=== PATIENT | male | born 1955 | race Caucasian/White ===

== ENCOUNTER 2016-06-29 10:59 | Day surgery (SDC) | payer OTHER ==
[~2016-06-29] VITALS: Ht 175.3 cm; Wt 106.6 kg
[~2016-06-29 10:59] MED LIST: CLON0.3T PO; HYG25 PO; LEVO50TA6 PO; LISI40TA PO; PARO20TA5 PO; SIMV20TA4 PO; Sodium Chloride LOK Flush 10 mL Syringe IV PRN; fentaNYL-PF 50 mCg/mL 2 mL Inj IVPUSH PRN
[2016-06-29 11:29] VITALS: BP 121/75; PULSE 64; RESP 16; O2SAT 96
[2016-06-29] MEDS: 0.9% Sodium Chloride 1,000 ML IV PRN ×3 (11:35→14:08)
[2016-06-29 14:20] VITALS: BP 113/79; PULSE 60; RESP 14; O2SAT 96
[2016-06-29 14:30] VITALS: BP 122/81; PULSE 60; O2SAT 98
[2016-06-29 14:40] VITALS: BP 121/76; PULSE 63; O2SAT 97
--- NOTE | 2016-06-29 21:59 | ENDO ---
[address] [address] ENDOSCOPY PROCEDURE PATIENT: GUEVARA XAVIER : 1955 MR#: [id number] ADMIT: 06/29/2016 JOB ID: [id number] PRIMARY PROVIDER: Paul Irvin MD PROCEDURE: Colonoscopy with hot snare polypectomy and Cespedes net retrieval. EQUIPMENT: PCF H 180 AL. SEDATION: 1. 7 mg Versed. 2. 125 mcg fentanyl. COMPLICATIONS: None identified. BOWEL PREPARATION: Fair. PROCEDURE IN DETAIL: After the risks and benefits were explained, written and verbal informed consent was obtained. The patient was brought into the endoscopy suite and placed into the left lateral decubitus position. Sedation was achieved as above. A digital rectal examination was accomplished. No significant pathology appreciated. The scope was introduced into the rectum and advanced under direct visualization to the level of the cecum, as identified by the appendiceal orifice and ileocecal valve. Ultimately, a large polyp was encountered in the cecum. This was very difficult in terms of removal. See below. Ultimately the largest portion of this polyp was dragged out using a Cespedes Net. I then reintroduced the scope into the rectum, decompressed and finally removed the scope proper. The patient tolerated the procedure quite well. FINDINGS: Lengthy colon. Challenging to finally arrive in the cecum. We had to have the patient mostly in the prone position in order to do so. We uncovered a large, perhaps 3 cm polyp in the cecum that was well from the appendiceal orifice. At 1st this gave the appearance of a short, pedunculated polyp. We therefore used a Jumbo snare to secure it around what we thought was the base and attempted to excise this. I found that the snare did not come all the way through. I had to switch over to a brief application of pure Endo-Cut. We then revealed that basically about half of the polyp had been removed. This was a sessile lesion. We then with difficulty because of challenge maintaining position, removed the remainder of the polyp using piecemeal hot polypectomy technique. At the end of our efforts, all of the polyp did appear to have been resected. There was some mild self-limited heme in some of the areas of the exposed submucosal mucosa, nothing sustained. No high-risk vessels were apparent. A couple of the fragments of polyp had to be left behind. We removed the largest component of this polyp with the Cespedes Net. With our limited examination of the remainder of the colon coming back with Cespedes Net in tow, I did not see any other significant pathology. This was a prolonged procedure. Very difficult polyp. A 22 modifier was therefore requested. ENDOSCOPIC DIAGNOSIS: Large cecal polyp. RECOMMENDATIONS: 1. Await histopathology. 2. Absolutely no aspirin or NSAIDs for two weeks. 3. Repeat full colonoscopy in six months' time. 4. The patient was counseled to contact us if he has any signs of post polypectomy hemorrhage or any severe abdominal pain to suggest perforation. Clinically, he tolerated the procedure quite well but was aware this was an exceptionally large polyp removed today.
--- NOTE | 2016-07-01 11:09 | PATH ---
SURGICAL PATHOLOGY Attending Physician:Lorenza Cardoso CASE STATUS: Signed Out PATIENT NAME: GUEVARA XAVIER PID: [id number] : 1955 DATE COLLECTED:06/29/2016 00:00 SPECIMEN: Colon, Biopsy CLINICAL HISTORY: 1). 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 Apparent short polyp stalk appears neoplastic with no normal colon mucosa identified. Negative for evidence of invasive malignancy. ICD10 D12.0 GROSS DESCRIPTION: The specimen is received in one formalin filled container labeled with the patient's name, sublabeled "cecum polyp" and consists of multiple portions of tissue which aggregate to 2.8 x 2.0 x 2.0 CM. The smallest portions are filtered and entirely submitted in cassette A. The largest piece is sectioned into 7 pieces and entirely submitted in cassettes B.-G. 06/30/2016 [facility] ICD-9 CODES: CPT CODES: 1: 38117 Electronically Signed Out Damian Madden MD [facility] Pathology [facility] [address], [place] [address] Technical component performed at [facility], [facility] [address], [place], [address]
== END 2016-06-29 23:59 | disposition home or self-care (01) ==
LOC: END 10:59
PROVIDERS: ATTEND Internal Medicine Gastroenterology
DX: Z12.11 Encounter for screening for malignant neoplasm of colon (principal); D12.0 Benign neoplasm of cecum

== ENCOUNTER → 2016-12-12 | Day surgery (SDC) | payer OTHER ==
[~2016-12-12] VITALS: Ht 172.7 cm; Wt 106.0 kg
[~2016-12-12] MED LIST changes: +0.9% Sodium Chloride 1,000 ML IV PRN
[2016-12-12 10:41] VITALS: BP 138/74; PULSE 68; RESP 16; O2SAT 98
[2016-12-12 11:32] VITALS: BP 110/72; PULSE 64; O2SAT 98
[2016-12-12 11:42] VITALS: BP 110/72; PULSE 68; O2SAT 98
--- NOTE | 2016-12-12 21:44 | ENDO ---
[address] [address] ENDOSCOPY PROCEDURE PATIENT: Martín XAVIER : 1955 MR#: [id number] ADMIT: 12/12/2016 JOB ID: [id number] DATE OF SERVICE: 12/12/2016 PRIMARY PROVIDER: Paul Irvin MD. PROCEDURE: A colonoscopy with biopsy and cold snare polypectomy. INDICATIONS: A 61-year-old male with a history of an advanced villous adenoma with some high-grade dysplasia in the cecum. Returns for early surveillance to ensure all of this has been resected. EQUIPMENT: [employer]-H180AL. SEDATION: 3 mg Versed, 75 mcg fentanyl. COMPLICATIONS: None identified. BOWEL PREPARATION: Fair, adequate exam. PROCEDURE INFORMATION: After the risks and benefits were explained, written and verbal informed consent was obtained, the patient was brought into the endoscopy suite and placed into the left lateral decubitus position. Sedation was achieved using the above-stated medications with the addition of oxygen via nasal cannula. A digital rectal examination was accomplished. No significant pathology appreciated. The scope was introduced into the rectum and advanced under direct visualization to the level of the cecum, as identified by the appendiceal orifice and ileocecal valve. Careful inspection was pursued in the cecum. We additionally used narrow band imaging. Biopsy was acquired. The scope was then slowly withdrawn to carefully examine the mucosa for any defects or lesions. Retroflexed views were accomplished in the rectum. The colon was decompressed. The scope removed from the patient who tolerated the procedure well. FINDINGS: Much easier navigation to cecum this time around. We had excellent visualization from within the cecum and no trouble maintaining position. The prior polypectomy site could easily be visualized and did not appear to demonstrate any obvious residual adenomatous mucosa including with narrow band imaging shots. Nevertheless, there was a small area of some erythema within the middle of the prior polypectomy site and this area was targeted for a biopsy to exclude any residual adenomatous mucosa. Otherwise, in the right and mid colon, there was a diminutive 2-3 mm polyp removed with cold forceps and then about a 4-5 mm sessile polyp removed with cold snare. These were submitted separately as colon polyps. The patient had diverticulosis in the left colon. Retroflexed views were unremarkable. ENDOSCOPIC DIAGNOSES: 1. Appropriate cecal postpolypectomy site. 2. Colon polyps. 3. Diverticulosis. 4. Mild internal hemorrhoids. RECOMMENDATIONS: 1. Await histopathology. 2. If the cecal biopsy does not show any adenoma, repeat colonoscopy three years. If there are signs of adenoma in the cecal biopsy, then I would recommend a repeat colonoscopy in 4-6 months.
--- NOTE | 2016-12-14 13:15 | PATH ---
SURGICAL PATHOLOGY Attending Physician:Lorenza Cardoso CASE STATUS: Signed Out PATIENT NAME: GUEVARA XAVIER PID: [id number] : 1955 DATE COLLECTED:12/12/2016 21:58 SPECIMEN: 1: Colon, Biopsy 2: Colon, Polyp CLINICAL HISTORY: 1). CECUM BIOPSY OF POST POLYPECTOMY SITE 2). POLYPS COLON FINAL DIAGNOSIS: 1. Cecum Post-Polypectomy Site, Biopsy: Colonic mucosa with mild architectural distortion consistent with polypectomy site. Negative for dysplasia/adenoma. 2. Colon Polyps, Biopsies: Tubular adenoma (2 of 2 pieces). ICD10: D12.6 GROSS DESCRIPTION: The specimen is received in two formalin filled containers labeled with the patient's name. 1). The specimen is labeled "cecum" and consists of a 0.3 x 0.2 x 0.2 CM portion of tissue which is entirely submitted in cassette 1A. 2). The specimen is labeled "polyps colon" and consists of 2 portions of tissue which aggregate to 0.2 x 0.2 x 0.2 CM. The specimen is entirely submitted in cassette 2A. 12/12/2016DC ICD-9 CODES: CPT CODES: 1: 67505 2: 89151 Electronically Signed Out Ash Hopkins MD, Ph.D. [facility] [address], [place] [address] Technical component performed at [facility], [address] [place] [address] Ave[address], [place], [address]
== END | disposition home or self-care (01) ==
LOC: END 00:29
PROVIDERS: ATTEND Internal Medicine Gastroenterology
DX: Z12.11 Encounter for screening for malignant neoplasm of colon (principal); D12.6 Benign neoplasm of colon, unspecified; K57.30 Diverticulosis of large intestine without perforation or abscess without bleeding; K64.8 Other hemorrhoids; G47.30 Sleep apnea, unspecified; F41.8 Other specified anxiety disorders
CPT/HCPCS: 45380; 45385; 99153; G0500; J2250; J3010; J7030